=== PATIENT | female | born 1955 | race Caucasian/White ===

== ENCOUNTER 2025-06-19 14:29 | Emergency (ER) | payer MEDICARE, SELFPAY ==
[2025-06-19 14:31] VITALS: BP 151/70
--- NOTE | 2025-06-19 15:23 | ED.GENMED ---
History of Present Illness
<Nelli Chin ZINC FURNACE CHARGER - Last Filed: 06/22/25 01:30>
General
Chief Complaint: Dizziness
Source: patient
Exam Limitations: none
Time Seen by Provider: 06/19/25 15:15
Nursing documentation reviewed up to this point in time: agreed with
History of Present Illness
History of Present Illness:
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 She states 2 days ago after she went to bed, got up in the middle the night to go to the bathroom and felt dizzy this would occur
off and on the past couple of days and she would 'walk it off', she was able to go to work up to yesterday and work her full shift at [employer]. She states this morning the dizziness was much worse, has become more frequent and more intense.
Dizziness worsens with motion, having had to close her eyes during a car ride due to motion exacerbating her symptoms. She describes the dizziness as 'room spinning' and notes that turning quickly from left to right precipitates episodes.
she vomited 3 times, the last emesis was 5 minutes ago. She denies headache or any head trauma. She denies change in vision. She denies neck pain. Denies weakness in extremities. Has had mild nasal congestion past few days. At this time if she
turns her head, gets room spinning dizziness.
Past History
<Nelli Chin ZINC FURNACE CHARGER - Last Filed: 06/22/25 01:30>
Past History
ED Past Medical History: HTN, Hypercholesterolemia, NIDDM and Other (left SC occlusion, peripheral artery disease of the upper extremities)
Social History
Tobacco: Former smoker
Personal:
Living: with family
Employment: Retired
Family History
Family History: CAD
Phy Exam
<Vance Alfrod PA-C - Last Filed: 06/19/25 18:39>
Physical Exam
Physical Exam:
GEN: Well appearing, NAD, WDWN
HEENT: Oral mucosa moist, no scleral icterus, no nasal congestion
Cardiac: Regular rate
Lung: No respiratory distress, no tachypnea
MSK: No gross deformity or injuries
Skin: Good color, no pallor or jaundice, no rashes
Neuro: AO x3; CN II-XII grossly intact. BUE strength 5/5 in all holt, sensation intact and symmetric. BLE strength 5/5 in all holt, sensation intact and symmetric. Horizontal beating nystagmus with rightward head rotation
Psych: Calm, cooperative
Course
<Nelli Chin NP - Last Filed: 06/22/25 01:30>
Orders/Labs/Results
Orders:
Orders
06/19/25 14:30
Electrocardiogram (*1) Urgent
Reason for Study: Vertigo / Dizzy
EKG- Treatment ONCE
06/19/25 15:30
CT Head W/o Iv Contrast Urgent
Comment:
Reason For Exam: dizziness
06/19/25 15:36
Physical Therapy Consult [Pt Eval And Treat] Urgent
Treatment: Vestibular evaluation
Activity Level: As Tolerated
06/19/25 16:10
Ondansetron Orally Disint [Zofran Odt (Orally Disintegrating)] 4 mg PO NOW STA
06/19/25 16:11
Diazepam [Valium] 5 mg PO NOW STA
06/19/25 16:48
Dexamethasone Pf [Decadron] 10 mg PO NOW STA
06/19/25 18:24
Diazepam [Valium] 5 mg PO NOW STA
Vital Signs
Initial and Last Documented VS:
Initial Vital Signs
Temp Pulse Resp BP Pulse Ox
97.4 F 68 16 151/70 98
06/19/25 14:31 06/19/25 14:31 06/19/25 14:31 06/19/25 14:31 06/19/25 14:31
Last Documented Vital Signs
Temp Pulse Resp BP Pulse Ox
97.4 F 61 15 151/70 94
06/19/25 14:31 06/19/25 15:30 06/19/25 15:30 06/19/25 14:31 06/19/25 18:00
<Vance Alford PA-C - Last Filed: 06/19/25 18:39>
Orders/Labs/Results
Orders:
Orders
06/19/25 14:30
Electrocardiogram (*1) Urgent
Reason for Study: Vertigo / Dizzy
EKG- Treatment ONCE
06/19/25 15:30
CT Head W/o Iv Contrast Urgent
Comment:
Reason For Exam: dizziness
06/19/25 15:36
Physical Therapy Consult [Pt Eval And Treat] Urgent
Treatment: Vestibular evaluation
Activity Level: As Tolerated
06/19/25 16:10
Ondansetron Orally Disint [Zofran Odt (Orally Disintegrating)] 4 mg PO NOW STA
06/19/25 16:11
Diazepam [Valium] 5 mg PO NOW STA
06/19/25 16:48
Dexamethasone Pf [Decadron] 10 mg PO NOW STA
06/19/25 18:24
Diazepam [Valium] 5 mg PO NOW STA
Vital Signs
Initial and Last Documented VS:
Initial Vital Signs
Temp Pulse Resp BP Pulse Ox
97.4 F 68 16 151/70 98
06/19/25 14:31 06/19/25 14:31 06/19/25 14:31 06/19/25 14:31 06/19/25 14:31
Last Documented Vital Signs
Temp Pulse Resp BP Pulse Ox
97.4 F 61 15 151/70 94
06/19/25 14:31 06/19/25 15:30 06/19/25 15:30 06/19/25 14:31 06/19/25 18:00
<Nelli Chin ZINC FURNACE CHARGER - Last Filed: 06/22/25 01:30>
MDM/Problems Addressed
Differential Diagnosis Includes:
BPPV, labyrinthitis, vestibular neuritis, TIA wonderful thank you
MDM/Problems Addressed:
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 She states 2 days ago after she went to bed, got up in the middle the night to go to the bathroom and felt dizzy this would occur
off and on the past couple of days and she would 'walk it off', she was able to go to work up to yesterday and work her full shift at [employer]. She states this morning the dizziness was much worse, has become more frequent and more intense.
Dizziness worsens with motion, having had to close her eyes during a car ride due to motion exacerbating her symptoms. She describes the dizziness as 'room spinning' and notes that turning quickly from left to right precipitates episodes.
she vomited 3 times, the last emesis was 5 minutes ago. She denies headache or any head trauma. She denies change in vision. She denies neck pain. Denies weakness in extremities. Has had mild nasal congestion past few days. At this time if she
turns her head, gets room spinning dizziness.
4:00 PM:
Head CT shows nothing acute.
Physical therapy in and evaluate patient: Observed left nystagmus at rest and with right Dea-Hallpike. Patient was so symptomatic that she had to stop her evaluation so that she could sit up and vomit again. Consistent with BPPV
Given pamphlet for Vestibular therapy
4:45 PM: Case discussed with MARNIE Moore who will assume care from this point.
Patient just received IV Valium and Zofran
<Vance Alford PA-C - Last Filed: 06/19/25 18:39>
MDM/Problems Addressed
Differential Diagnosis Includes:
BPPV, labyrinthitis, vestibular neuritis, TIA
<Nelli Chin ZINC FURNACE CHARGER - Last Filed: 06/22/25 01:30>
*Pulse Oximetry
SaO2: 98
Oxygen Mode of Delivery: Room air
<Vance Alford PA-C - Last Filed: 06/19/25 18:39>
*Pulse Oximetry
Patient hypoxic: no
*Critical Care Note
Total Time (30-74mins, 75-104mins- exclusive of procedures): Not Applicable
<Vance Alford PA-C - Last Filed: 06/19/25 18:39>
Update Note
Update Note:
Assumed care of patient from Monalisa chin ZINC FURNACE CHARGER at shift change. Patient with severe right sided BPPV, CT of the head shows paranasal sinus disease. Reassessed patient, she just received p.o. diazepam and ondansetron, reports no improvement with head
turn to the right. She does note facial pressure and rhinorrhea and thus the paranasal sinus disease may be contributory. Nothing would suggest ABRS thus we will treat with a course of steroids as well. Patient is hopeful for discharge home, will
reassess
After reassessment, pt markedly improved. Able to ambulate without difficulty. Will d/c with short course of steroids (for sinusitis likely provoking BPPV) and diazepam PRN
ED Attending Note
<Nelli Chin ZINC FURNACE CHARGER - Last Filed: 06/22/25 01:30>
-
Portions of this chart may have been created with voice recognition software.� Occasional wrong word or��sound alike� substitutions may have occurred due to the inherent limitations of voice recognition software.
Discharge Plan
Departure
Patient Disposition: Home (Routine Discharge)
Date of Disposition: 06/19/25
Time of Disposition: 18:25
Patient with high blood pressure during this ER visit?: No
Discharge Problem:
Benign paroxysmal positional vertigo, Sinusitis
Instructions: Vertigo (a Type of Dizziness) (DC)
Prescriptions:
New
diazepam [Valium] 5 mg tablet
5 mg PO BID PRN (Reason: dizziness) Qty: 10 0RF
methylprednisolone [Medrol (Alfonso)] 4 mg tablets,dose pack
See Rx Instructions .ROUTE .COMPLEX Qty: 21 0RF
Rx Instructions:
for 6 days
No Action
atorvastatin 80 MG tablet
80 mg PO QPM Qty: 30 0RF
Rx Instructions:
first dose evening of 05/07/19
aspirin 81 MG tablet,chewable
81 mg PO DAILY Qty: 30 0RF
Referrals:
NONE,* [Family Provider, Internal Medicine]
Interventions
Interventions:
*Risk Screen - Suicide Last Done: 06/19/25 14:31
*General Assessment Last Done: 06/19/25 16:15
*Neglect/Abuse Screening Last Done: 06/19/25 14:31
*ED- Fall Risk Assessment Last Done: 06/19/25 17:37
*ED COVID-19 Vaccine History Last Done: 06/19/25 16:15
*ED Influenza Vaccine History Last Done: 06/19/25 16:15
*Nursing Disposition Last Done: 06/19/25 18:39
ED- Neurological Assessment Last Done: 06/19/25 16:15
ED- Cardiac Assessment Last Done: 06/19/25 16:15
ED Swallowing Screen Last Done: 06/19/25 16:15
Discharge Date and Time
Discharge Date/Time: 06/19/25 18:39
Print Language: LAO
[2025-06-19] MEDS: VALIUM 5 MG PO ×2 (16:27→18:35)
[2025-06-19] MEDS: ZOFRAN ODT (ORALLY DISINTEGRATING) 4 MG PO (16:28)
[2025-06-19] MEDS: DECADRON 10 MG PO (17:33)
== END 2025-06-19 18:39 | disposition home or self-care (01) ==
LOC: EMR 14:29
PROVIDERS: EMERGENCY PHYSICIAN Emergency Medicine
DX: H81.11 Benign paroxysmal vertigo, right ear (principal); J32.9 Chronic sinusitis, unspecified; E11.51 Type 2 diabetes mellitus with diabetic peripheral angiopathy without gangrene; I10 Essential (primary) hypertension; E78.00 Pure hypercholesterolemia, unspecified; I65.29 Occlusion and stenosis of unspecified carotid artery; Z79.82 Long term (current) use of aspirin; Z87.891 Personal history of nicotine dependence; Z82.49 Family history of ischemic heart disease and other diseases of the circulatory system
CPT/HCPCS: 99284; 70450; 93005